=== PATIENT | female | born 1940 | race Caucasian/White ===

== ENCOUNTER 2016-11-21 08:44 | Emergency (ER) | payer BC, MEDICAID, OTHER ==
[~2016-11-21] VITALS: Ht 154.9 cm; Wt 68.0 kg
[~2016-11-21 08:44] MED LIST: INDA1.255 PO; METO25TA6 PO; RAMI10CA PO; WARF6TAB23 PO; [UNRECOGNIZED DRUG - REMARK]; trimetazidine PO
[2016-11-21] MEDS ORDERED: ASPIRIN 325 MG TABLET ONE (08:57)
[2016-11-21] MEDS ORDERED: ASPIRIN 325 MG TABLET PO ONE (09:00)
[2016-11-21 09:22] LABS: BASOPHILS % (AUTO) 0.3 % (0.0-2.0); DIFF TOTAL % 100 %; EOSINOPHILS % (AUTO) 0.6 % (0.0-6.0); HEMATOCRIT 33 % (33-45); HEMOGLOBIN 11.3 g/dL (11.5-14.8); LYMPHOCYTES # (AUTO) 1.4 /CMM (0.8-4.8); LYMPHOCYTES % (AUTO) 44.9 % (20.0-44.0); MEAN CORPUSCULAR HEMOGLOBIN 30 PG (26.0-33.0); MEAN CORPUSCULAR HGB CONC 35 g/dl (31.0-36.0); MEAN CORPUSCULAR VOLUME 86 fL (82-100); MONOCYTES # (AUTO) 0.3 /CMM (0.1-1.30); MONOCYTES % (AUTO) 10.3 % (2.0-12.0); NEUTROPHILS # (AUTO) 1.4 /CMM (1.8-8.9); NEUTROPHILS % (AUTO) 43.9 % (43.0-81.0); PLATELET COUNT (AUTO) 203 /CMM (150-450); RED BLOOD CELL COUNT(AUTO) 3.81 MIL/uL (4.0-5.2); WHITE BLOOD COUNT (AUTO) 3.2 K/uL (4.3-11.0)
[2016-11-21 09:31] LABS: ANION GAP 12 (5-14); CALCIUM, SERUM 8.6 mg/dL (8.5-10.1); CARBON DIOXIDE 30 mmol/L (21-32); CHLORIDE 86 mmol/L (98-107); CREATININE 1.7 mg/dL (0.6-1.3); GLUCOSE 100 mg/dL (74-106); POTASSIUM 3.7 mmol/L (3.5-5.1); SODIUM SERUM 124 mmol/L (136-145); UREA NITROGEN, BLOOD 20 mg/dL (7-18)
[2016-11-21 09:39] LABS: TROPONIN I < 0.017 ng/mL (0.00-0.056)
[2016-11-21 10:05] LABS: INR 0.99 (0.87-1.13); PROTHROMBIN TIME 10.7 SECS (9.5-12.7)
[2016-11-21] MEDS ORDERED: ASPI-991 PO (10:11)
[2016-11-21] MEDS ORDERED: LOSA1TAB35 PO (10:11)
[2016-11-21] MEDS ORDERED: DRON400T2 PO (10:11)
[2016-11-21] MEDS ORDERED: APIX2.5T PO (10:11)
[2016-11-21] MEDS ORDERED: METO-304 PO (10:11)
[2016-11-21 11:48] VITALS: BP 122/74
== END 2016-11-21 11:49 | disposition home or self-care (01) ==
LOC: ER 08:47
DX: J06.9 Acute upper respiratory infection, unspecified (principal); I10 Essential (primary) hypertension; Z96.89 Presence of other specified functional implants
CPT/HCPCS: 36415; 71010-TC; 80048-TC; 83880; 84484-TC; 85025-TC; 85730-TC; 87400; A4606; Z7610